=== PATIENT | male | born 1960 | race Caucasian/White ===

== ENCOUNTER 2021-08-05 03:11 | Emergency (ER) | payer MEDICAID, MEDICARE, SELFPAY | END 2021-08-05 03:25 | disposition left against medical advice (07) | LOC: FB.ED 03:11 | DX: Z53.21 Procedure and treatment not carried out due to patient leaving prior to being seen by health care provider (principal) ==

== ENCOUNTER 2022-03-28 18:20 | Emergency (ER) | payer MEDICARE ==
[2022-03-28] MEDS ORDERED: HYDROmorphone 2 MG/ML SDV IVPUSH ONE (18:38)
[2022-03-28] MEDS ORDERED: Lactated Ringers 1,000 ML IV SCH (18:45)
== END 2022-03-28 18:53 | disposition home or self-care (01) ==
LOC: FB.ED 18:20
DX: T18.128A Food in esophagus causing other injury, initial encounter (principal)
CPT/HCPCS: 99281; 99283